=== PATIENT | male | born 1945 | race Hispanic/Latino ===

== ENCOUNTER → 2019-03-31 | Outpatient (CLI) | payer MEDICARE ==
[~2019-03-31] MED LIST: AMLO5TAB9 PO; ASPI-1197 PO; CEPH500B PO; FINA5TAB41 PO; LOSA100T58 PO; MELO-106 PO; TAMS0.4C32 PO
== END | disposition home or self-care (01) ==
LOC: SHCH 14:25
PROVIDERS: ATTEND Internal Medicine Cardiovascular Disease
DX: I10 Essential (primary) hypertension (principal)
CPT/HCPCS: 93922

== ENCOUNTER 2019-04-28 10:13 | Day surgery (SDC) | payer MEDICARE ==
[2019-04-27 10:27] LABS: BASOPHILS % (AUTO) 0.6 % (0.0-5.0); EOSINOPHILS % (AUTO) 0.5 % (0.0-8.0); HEMATOCRIT 40.2 % (42-54); LYMPHOCYTES % (AUTO) 29.6 % (21.0-51.0); MEAN CORPUSCULAR HEMOGLOBIN 27.6 pg (27.0-33.0); MEAN CORPUSCULAR HGB CONC 33.1 g/dL (32.0-36.0); MEAN CORPUSCULAR VOLUME 83.4 fL (79-99); MONOCYTES % (AUTO) 5.8 % (3.0-13.0); NEUTROPHILS % (AUTO) 63.3 % (40.0-77.0); PLATELET COUNT (AUTO) 225 K/uL (130-400); RED BLOOD CELL COUNT(AUTO) 4.82 MIL/uL (4.50-6.20); RED CELL DISTRIBUTION WIDTH 13.2 % (11.0-15.5); WHITE BLOOD COUNT (AUTO) 8.8 K/uL (4.8-10.8)
[2019-04-27 10:29] LABS: APPEARANCE,URINE Clear (CLEAR); BILIRUBIN,URINE Negative (NEGATIVE); COLOR,URINE Yellow (YELLOW); GLUCOSE, URINE (UA) 250 mg/dL (NEGATIVE); KETONES,URINE Negative (NEGATIVE); LEUKOCYTE ESTERASE ,URINE Negative (NEGATIVE); NITRATE,URINE Negative (NEGATIVE); OCCULT BLOOD,URINE Negative (NEGATIVE); PROTEIN,URINE Negative (NEGATIVE); UROBILINOGEN,URINE 0.2 mg/dL (0.2-1.0)
[2019-04-27 10:31] VITALS: BP 165/81
[2019-04-27 10:37] LABS: CREATININE 1.4 mg/dL (0.5-1.5); POTASSIUM 4.1 mmol/L (3.5-5.1)
[2019-04-27 10:55] LABS: INR 1.05 (0.85-1.15); PARTIAL THROMBOPLASTIN TIME 29.4 SEC (26.3-35.5)
[2019-04-27 11:01] LABS: BACTERIA,URINE Rare /HPF (None Seen); RBC,URINE 0-1 /HPF (0-1); SQUAMOUS EPITHELIAL CELL,UR Rare /HPF (0-2); WBC,URINE 0-1 /HPF (0-1)
--- NOTE | 2019-04-27 15:20 | NUR ---
ABNORMAL LABS CREAT 1.4 REPORTED TO JOCELYNE VALLEJO. NO FURTHER ORDERS GIVEN, MAY PROCEED WITH PLANNED PROCEDURE.
[~2019-04-28] VITALS: Ht 157.5 cm; Wt 92.3 kg
[2019-04-28] VITALS (11 sets, daily range): BP systolic 73–157; BP diastolic 59–86
[~2019-04-28 10:13] MED LIST changes: -ASPI-1197 PO; -CEPH500B PO; +CETI10TA57 PO; +DABI150C PO; +METF-446 PO
[2019-04-28] MEDS ORDERED: SODIUM CHLORIDE 0.9% 1000ML 1,000 ML IV ONE (11:08)
--- NOTE | 2019-04-28 13:35 | NUR ---
procedure pt taken to lab specialist for scheduled procedure
[2019-04-28] MEDS ORDERED: SODIUM BICARB 50MEQ 50ML VIAL ONE (13:43)
[2019-04-28] MEDS ORDERED: LIDOCAINE HCL 2% 20ML ONE (13:43)
[2019-04-28] MEDS ORDERED: HEPARIN SODIUM 1000UNIT/ML 10ML VIAL ONE (13:44)
[2019-04-28] MEDS ORDERED: NITROGLYCERIN 5 MG/ML 10 ML VIAL IV ONE (13:44)
[2019-04-28] MEDS ORDERED: MIDAZOLAM HCL 1 MG/ML 2ML VIAL ONE (13:44)
[2019-04-28] MEDS ORDERED: IOHEXOL 350 MG/ML 100ML INFUS..BTL IV ONE (13:44)
[2019-04-28] MEDS ORDERED: IOHEXOL-350 50ML VIAL IV ONE (13:44)
[2019-04-28] MEDS ORDERED: FENTANYL CITRATE PF 50 MCG/1 ML 2ML VIAL ONE (13:44)
[2019-04-28] MEDS ORDERED: NICARDIPINE HCL 25 MG/10 ML ML IV ONE (13:48)
--- NOTE | 2019-04-28 15:30 | NUR ---
report report given to Celestina Faith to resume care of patient, pt still in label maker for procedure
--- NOTE | 2019-04-28 18:06 | NUR ---
PT AAOX3, NO C/O PAIN TO RT WRIST. NO ACTIVE BLEEDING OR HEMATOMA TO R WRIST. TR BAND REMOVED, GAUZE WRAP APPLIED WITH KOBAN WRAP. PT STABLE NO DISTRESS. POST CARE INSTRUCTIONS AND PRESCRIPTIONS GIVEN TO AND SON, BOTH VERBALIZED UNDERSTANDING. PT DRESSED WITH ASSISTANCE, IV D/C. PT TAKEN OUT IN W/C AND DRIVEN HOME BY SON. ALL PERSONAL BELONGINGS WITH .
== END 2019-04-28 18:06 | disposition home or self-care (01) ==
LOC: CLH 10:13 → DAH 10:13 → CLH 18:06
PROVIDERS: ATTEND Internal Medicine Cardiovascular Disease
DX: I25.118 Atherosclerotic heart disease of native coronary artery with other forms of angina pectoris (principal); I10 Essential (primary) hypertension; E78.2 Mixed hyperlipidemia; I48.0 Paroxysmal atrial fibrillation; E11.9 Type 2 diabetes mellitus without complications; Z95.0 Presence of cardiac pacemaker; Z79.899 Other long term (current) drug therapy; Z79.84 Long term (current) use of oral hypoglycemic drugs; Z87.891 Personal history of nicotine dependence; Z82.49 Family history of ischemic heart disease and other diseases of the circulatory system
CPT/HCPCS: 36415; 71045; 80048; 81001; 82948 ×2; 85025; 85610; 85730; 93005; 93458; A4215; A4216; A4221; A4222; A4223 ×3; A4606; A4663; C1769; C1894; J1644; J2250; J3010; J3490 ×4; J7030; Q9965; Q9967 ×2; 99156; 99157